=== PATIENT | male | born 1980 | race Caucasian/White ===

== ENCOUNTER 2020-01-03 07:22 | Emergency (ER) | payer OTHER ==
[~2020-01-03] VITALS: Ht 185.4 cm; Wt 104.5 kg
[2020-01-03 07:32] VITALS: BP 128/78
--- NOTE | 2020-01-03 07:36 | PHYS DOC ---
General Adult EDM: Chief Complaint: SHOULDER INJURY HPI: HPI: 39-year-old male presents to the ER with complaint of left shoulder pain. Patient reports that he fell down his stairs last night accidentally. He landed on his back on the left side and on his left shoulder. States initially could not move his left shoulder but it has improved since onset. He has pain to the anterolateral aspect of the left shoulder and decreased range of motion secondary to pain. He took Motrin prior to arrival. He has no numbness or tingling currently. He has no midline back tenderness. [place] Review of Systems: Review of Systems: All other systems negative except as documented in HPI. Heart Score: Risk Factors: Risk Factors: DM, Current or recent (<one month) smoker, HTN, HLP, family history of CAD, obesity. Risk Scores: Score 0 - 3: 2.5% MACE over next 6 weeks - Discharge Home Score 4 - 6: 20.3% MACE over next 6 weeks - Admit for Clinical Observation Score 7 - 10: 72.7% MACE over next 6 weeks - Early Invasive Strategies Physical Exam: PE: Constitutional: Well developed, well nourished, no acute distress, non-toxic appearance. [] HENT: Normocephalic, atraumatic, bilateral external ears normal, oropharynx moist, no oral exudates, nose normal. [] Eyes: PERRLA, EOMI, conjunctiva normal, no discharge. [] Neck: Normal range of motion, no tenderness, supple, no stridor. [] Cardiovascular:Heart rate regular rhythm, no murmur [] Lungs & Thorax: Bilateral breath sounds clear to auscultation [] Skin: Warm, dry, no erythema, no rash. [] Back: Tenderness to palpation left upper/middle back and left lower back. Extremities: Extremities are normal except for the left arm which is held close to the side and has decreased range of motion secondary to perceived pain. There is no obvious deformity noted. Tenderness to palpation left anterior lateral shoulder. Neurologic: Alert and oriented X 3, normal motor function, normal sensory function, no focal deficits noted. [] Psychologic: Affect normal, judgement normal, mood normal. [] EKG: EKG: [] Radiology/Procedures: Radiology/Procedures: IMPRESSION: No acute osseous abnormality Lumbar xray: IMPRESSION: 1. Mild wedging of the L1 vertebral body anteriorly. This may be degenerative or physiologic, although a subtle inferior endplate compression fracture is possible. Correlate with point tenderness and consider CT or MRI if further evaluation indicated. 2. Posterior and interbody fusion at L5-S1 without evidence of complication. Splinting: Patient was placed in a sling about the left arm. Neurovascularly intact post application. Patient tolerated well. This was applied by nursing staff. Course & Med Decision Making: Course & Med Decision Making Pertinent Labs and Imaging studies reviewed. (See chart for details) 0736: Patient seen for fall and left shoulder pain. Will x-ray the left should er. 0810: Patient's x-ray is negative. He is requesting a lumbar x-ray at this time so we will provide this. Will place the patient in a sling and prescribed diclofenac and steroids and recommend he follow-up in 5 to 7 days for ongoing discomfort. 0918: Lumbar x-ray does show some abnormality but this is likely physiologic. Discussed this with the patient and recommend follow-up for ongoing discomfort for possible CT or MRI. Dragon Disclaimer: Dragon Disclaimer: This electronic medical record was generated, in whole or in part, using a voice recognition dictation system. Departure Departure: Impression: Primary Impression: Fall Additional Impressions: Left shoulder pain Low back pain Disposition: 01 HOME/RESIDENCE PRIOR TO ADM Condition: STABLE Referrals: KATEY NINA (PCP) Please follow-up in 5 to 7 days for ongoing discomfort. Patient Instructions: Shoulder Pain Additional Instructions: Please wear your sling for comfort as needed. You should take your arm out and move through range of motion frequently throug hout the day to avoid frozen shoulder. Scripts Diclofenac Sodium (DICLOFENAC SODIUM) 75 Mg Tablet.dr 1 TAB PO BID for Pain for 10 Days, #20 TAB 1 Refill Prov: AAMIR MCDONALD DO 01/03/20 Prednisone (PREDNISONE) 50 Mg Tablet 50 MG PO DAILY for Pain for 5 Days, #5 TAB Prov: AAMIR MCDONALD DO 01/03/20 Justification of Admission: Justification of Admission: Justification of Admission Dx: N/A AAMIR MCDONALD DO Jan 03, 2020 07:36
--- NOTE | 2020-01-03 08:06 | RAD ---
PROCEDURE: SHOULDER 2+V LEFT CLINICAL INDICATION / HISTORY: Reason: Fall with pain / Spl. Instructions: / History: . TECHNIQUE: AP internal and external rotation views with a Y- view were obtained. COMPARISON: None FINDINGS: No fracture, dislocation or bone destruction is identified. There are no degenerative changes at the left AC joint. No calcifications are seen in relation to the rotator cuff insertion. IMPRESSION: No acute osseous abnormality Electronically signed by: Marcellus Le MD (01/03/2020 8:03 AM) [id number]
[2020-01-03] MEDS ORDERED: PRED50TA PO (08:18)
[2020-01-03] MEDS ORDERED: DICL75TA PO (08:18)
--- NOTE | 2020-01-03 09:07 | RAD ---
EXAM: LUMBAR SPINE 2-3V 01/03/2020 8:14 AM CLINICAL INDICATION:Low back pain after fall, history of lumbar fusion 2016 COMPARISON:None TECHNIQUE:AP, lateral, and coned-down lateral views of the lumbar spine FINDINGS:There are 5 nonrib-bearing lumbar vertebral bodies. There is posterior and interbody fusion at L5-S1. Hardware appears intact without evidence of loosening. The interbody graft is well incorporated. There is mild wedging of the L1 vertebral body anteriorly, which could be degenerative or could be a subtle age indeterminate fracture. No other fracture. Alignment is normal. There is mild disc space narrowing at the thoracolumbar junction with small marginal osteophytes. The remaining disc spaces are maintained. Facet joints are normal. IMPRESSION: 1. Mild wedging of the L1 vertebral body anteriorly. This may be degenerative or physiologic, although a subtle inferior endplate compression fracture is possible. Correlate with point tenderness and consider CT or MRI if further evaluation indicated. 2. Posterior and interbody fusion at L5-S1 without evidence of complication. Electronically signed by: Haydee Caruso MD (01/03/2020 9:04 AM) [id number]
== END 2020-01-03 09:26 | disposition home or self-care (01) ==
LOC: ER 07:22
DX: M25.512 Pain in left shoulder (principal); M54.5 Low back pain; W10.8XXA Fall (on) (from) other stairs and steps, initial encounter; Y93.89 Activity, other specified; Y92.89 Other specified places as the place of occurrence of the external cause; Y99.8 Other external cause status
CPT/HCPCS: 72100; 73030; 99284

== ENCOUNTER 2020-07-18 07:47 | Emergency (ER) | payer OTHER ==
[~2020-07-18] VITALS: Ht 185.4 cm; Wt 111.4 kg
[~2020-07-18 07:47] MED LIST: DICL75TA PO; PRED50TA PO
--- NOTE | 2020-07-18 08:06 | PHYS DOC ---
Past History Past Medical History: Arthritis Additional Past Medical Histor: shoulder dislocation, spinal fracture, shoulder separation Additional Past Surgical Histo: Fusion L5-S1 Alcohol Use: Occasionally General Adult EDM: Chief Complaint: ANKLE PROBLEM HPI: HPI: 40M p/w right ankle inversion injury just prior to arrival, when he accidentally stepped in a shallow hole. Pain is dull and worse on anterolateral aspect. Worsened with movement. No weakness or paresthesia. No fall or CHI. No other areas of pain. Review of Systems: Review of Systems: Neuro: No COYLE, dizziness, weakness. MSK: No back pain. Reports arthralgia. Skin: No acute rash or lesion. Remainder of systems reviewed and negative unless otherwise specified. Allergies: Allergies: Allergies Coded Allergies Type Severity Reaction Last Updated Verified No Known Drug Allergies 01/03/20 No Physical Exam: PE: Gen: NAD. Well nourished. Head: NC/AT. Eyes: No scleral icterus. No conjunctival injection. ENT: MMM. Neck: Supple. NT. CV: RRR. Peripheral pulses intact. Resp: CTAB. MSK: No peripheral cyanosis. No edema. Nonfocal TTP lateral aspect right ankle with minimal limitation of AROM. DP pulse 2+. Neuro: A&Ox3. Strength & sensation grossly intact throughout. Skin. Warm. Dry. Psych: Appropriate mood & affect. EKG: EKG: [] Radiology/Procedures: Radiology/Procedures: PROCEDURE: ANKLE RIGHT 3V 3 view study of the right ankle Clinical indications: Inversion injury. Ankle pain. FINDINGS: No acute fracture or dislocation or lytic process is evident. The mo rtise ankle joint is intact. IMPRESSION: No acute fracture. Electronically signed by: Antonio Lara MD (07/18/2020 8:17 AM) [id number] DICTATED AND SIGNED BY: ANTONIO LARA MD Heart Score: C/O Chest Pain: No Risk Factors: Risk Factors: DM, Current or recent (<one month) smoker, HTN, HLP, family histo ry of CAD, obesity. Risk Scores: Score 0 - 3: 2.5% MACE over next 6 weeks - Discharge Home Score 4 - 6: 20.3% MACE over next 6 weeks - Admit for Clinical Observation Score 7 - 10: 72.7% MACE over next 6 weeks - Early Invasive Strategies Course & Med Decision Making: Course & Med Decision Making Pertinent Labs and Imaging studies reviewed. (See chart for details) In summary, 40-year-old male who presents with right ankle inversion injury. No gross deformity or overlying skin changes. Neurovascular intact distally. Ankle film was negative for acute osseous abnormality. Likely ankle sprain. Will be discharged home with outpatient follow-up. Return precautions given. Anjali Disclaimer: Anjali Disclaimer: This electronic medical record was generated, in whole or in part, using a voice recognition dictation system. Departure Departure: Impression: Primary Impression: Right ankle sprain Disposition: 01 DC HOME SELF CARE/HOMELESS Condition: STABLE Referrals: AKTEY NINA (PCP) ERIS BRYAN II, MD Patient Instructions: Ankle Sprain, [id number] Additional Instructions: Your ankle X-ray did NOT show a fracture. Take tylenol or motrin as needed for pain. You may be weight bearing as you're able to tolerate. Follow up with orthopedics if you have continued pain after 5-7 days. ELIGIO BROWN DO Jul 18, 2020 08:06
--- NOTE | 2020-07-18 08:20 | RAD ---
3 view study of the right ankle Clinical indications: Inversion injury. Ankle pain. FINDINGS: No acute fracture or dislocation or lytic process is evident. The mortise ankle joint is in tact. IMPRESSION: No acute fracture. Electronically signed by: Ambrose Lara MD (07/18/2020 8:17 AM) [id number]
[2020-07-18 08:37] VITALS: BP 120/78
== END 2020-07-18 08:39 | disposition home or self-care (01) ==
LOC: ER 07:47
DX: S93.401A Sprain of unspecified ligament of right ankle, initial encounter (principal); M19.90 Unspecified osteoarthritis, unspecified site; W22.8XXA Striking against or struck by other objects, initial encounter; Y93.89 Activity, other specified; Y92.89 Other specified places as the place of occurrence of the external cause; Y99.8 Other external cause status
CPT/HCPCS: 73610; 99283